=== PATIENT | female | born 1965 | race Two or more races ===

== ENCOUNTER 2022-11-25 06:30 | Day surgery (SDC) | payer OTHER ==
[~2022-11-25] VITALS: Ht 149.9 cm; Wt 74.8 kg
[~2022-11-25 06:30] MED LIST: ATORVASTATIN CA20 MG PO; COZAAR25 MG PO; COZAAR50 MG PO; PANTOPRAZOLE SO40 M2 PO
== END 2022-11-25 19:35 | disposition home or self-care (01) ==
LOC: CIR.AMB 06:30
PROVIDERS: ATTEND Obstetrics & Gynecology Gynecology
DX: N84.0 Polyp of corpus uteri (principal); Z88.0 Allergy status to penicillin; Z20.822 Contact with and (suspected) exposure to COVID-19; I10 Essential (primary) hypertension